=== PATIENT | female | born 1995 | race Hispanic/Latino ===

== ENCOUNTER 2022-04-20 18:56 | Emergency (ER) | payer SELFPAY ==
[2022-04-20 20:02] LABS: Urine Blood Trace-intact (Negative); Urine Glucose Negative (Negative); Urine Protein Negative (Negative)
[2022-04-20 20:10] LABS: Specific Gravity 1.007 (1.005-1.030); Urine Bacteria <20 /HPF (<20); Urine Bilirubin NEGATIVE (Negative); Urine Blood Negative (Negative); Urine Clarity Clear (Clear); Urine Color Colorless (Yellow); Urine Glucose NEGATIVE (Negative); Urine Mucus Slight /HPF (None Seen); Urine Protein NEGATIVE (Negative); Urine RBC <5 /HPF (None Seen); Urine Urobilinogen Normal (Normal); Urine pH 5.5 (5.0-7.0)
--- NOTE | 2022-04-20 21:29 | ER ---
Nurse's Notes [facility] Name: Di Lopez Age: 26 yrs Sex: Female : 1995 Arrival Date: 04/20/2022 Time: 18:59 Bed 7 Private MD: Diagnosis: Vaginal candidiasis, pelvic pain, lower back pain, urinary tract infection, acute cervicitis Presentation: 04/20 19:39 Chief complaint: Patient states: "I'm having lower back pain and pelvic pain". as6 Coronavirus screen: At this time, the client does not indicate any symptoms associated with coronavirus-19. Ebola Screen: No symptoms or risks identified at this time. Initial Sepsis Screen: Does the patient meet any 2 criteria? No. Patient's initial sepsis screen is negative. Does the patient have a suspected source of infection? No. Patient's initial sepsis screen is negative. Risk Assessment: Do you want to hurt yourself or someone else? Patient reports no desire to harm self or others. Onset of symptoms was April 19, 2022. 19:39 Method Of Arrival: Ambulatory as6 19:39 Acuity: MATTHEW 4 as6 Triage Assessment: 19:43 General: Appears uncomfortable, Behavior is calm, cooperative. Pain: Complains of pain as6 in back and pelvis Quality of pain is described as crampy. : Reports discharge. 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 - Social history:: Smoking status: Patient denies any tobacco usage or history of. - Family history:: not pertinent. Screenin:52 [facility] ED Fall Risk Assessment (Adult) History of falling in the last 3 months, kd3 including since admission No falls in past 3 months (0 pts) Confusion or Disorientation No (0 pts) Intoxicated or Sedated No (0 pts) Impaired Gait No (0 pts) Mobility Assist Device Used No (0 pt) Altered Elimination No (0 pt) Score/Fall Risk Level 0 - 2 = Low Risk. Abuse screen: Denies threats or abuse. Denies injuries from another. Nutritional screening: No deficits noted. Tuberculosis screening: No symptoms or risk factors identified. Assessment: 21:52 Neuro: Level of Consciousness is awake, alert, obeys commands, Oriented to person, kd3 place, time, situation. Vital Signs: 19:39 BP 124 / 76; Pulse 95; Resp 18 S; Temp 98.2(O); Pulse Ox 98% on R/A; Weight 90.72 kg as6 (R); Height 5 ft. 0 in. (152.40 cm) (R); Pain 7/10; 21:52 BP 122 / 72; Pulse 84; Resp 18; Pulse Ox 100% on R/A; kd3 19:39 Body Mass Index 39.06 (90.72 kg, 152.40 cm) as6 ED Course: 18:59 Patient arrived in ED. ja2 19:09 Jeremie Sosa MD is Attending Physician. sp4 19:43 Triage completed. as6 19:44 Arm band placed on. as6 21:02 Archana Sanabria, JERALD is Primary Nurse. kd3 21:52 Patient has correct armband on for positive identification. kd3 21:52 No provider procedures requiring assistance completed. Patient did not have IV access kd3 during this emergency room visit. Administered Medications: 21:48 Drug: Ondansetron 4 mg Route: PO; kd3 21:53 Follow up: Response: No adverse reaction kd3 21:48 Drug: Nitrofurantoin 100 mg Route: PO; kd3 21:53 Follow up: Response: No adverse reaction kd3 21:48 Drug: HYDROcodone-acetaminophen 5 mg-325 mg 2 tabs Route: PO; kd3 21:53 Follow up: Response: No adverse reaction; Pain is decreased kd3 21:49 Drug: Rocephin (cefTRIAXone) 1 grams Route: IM; Site: right gluteus; kd3 21:53 Follow up: Response: No adverse reaction kd3 21:49 Drug: DiFLUcan (fluconazole) 200 mg Route: PO; kd3 21:53 Follow up: Response: No adverse reaction kd3 21:49 Drug: Ibuprofen 800 mg Route: PO; kd3 21:53 Follow up: Response: No adverse reaction kd3 Medication: 21:52 VIS not applicable for this client. kd3 Outcome: 21:28 Discharge ordered by . sp4 21:52 Discharged to home ambulatory. kd3 21:52 Condition: stable 21:52 Discharge instructions given to patient, Instructed on discharge instructions, follow up and referral plans. medication usage, Demonstrated understanding of instructions, follow-up care, medications. 21:53 Patient left the ED. kd3 Signatures: Xiomy Pickens Ashby, RN RN as6 Archana Sanabria RN RN kd3 Jeremie Sosa MD MD sp4
--- NOTE | 2022-04-20 21:29 | EDPHYS ---
Physician Documentation [facility] Name: Di Lopez Age: 26 yrs Sex: Female : 1995 Arrival Date: 04/20/2022 Time: 18:59 Bed 7 Private MD: ED Physician Jeremie Sosa HPI: 04/20 19:09 This 26 yrs old Female presents to ER via Unassigned with complaints of Back sp4 Pain, Pelvic Pain. 20:08 26-year-old female with no significant past medical history presents with acute onset sp4 of pelvic and lower back pain starting yesterday evening associated with white vaginal discharge and some dysuria, patient states she does not suspect she is and she denied vaginal bleeding, pain is constant and crampy. 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 - Social history:: Smoking status: Patient denies any tobacco usage or history of. - Family history:: not pertinent. ROS: 20:08 Constitutional: Negative for fever, chills, and weight loss, Eyes: Negative for injury, sp4 pain, redness, and discharge, ENT: Negative for injury, pain, and discharge, Neck: Negative for injury, pain, and swelling, Cardiovascular: Negative for chest pain, palpitations, and edema, Respiratory: Negative for shortness of breath, cough, wheezing, and pleuritic chest pain, Abdomen/GI: Negative for abdominal pain, nausea, vomiting, diarrhea, and constipation, Back: Negative for injury positive for lower back pain : Negative for injury, negative for vaginal bleeding, positive for pelvic pain positive for vaginal discharge, positive for crampy lower back pain positive for dysuria MS/Extremity: Negative for injury and deformity, Skin: Negative for injury, rash, and discoloration, Neuro: Negative for headache, weakness, numbness, tingling, and seizure, Psych: Negative for depression, anxiety, suicide ideation, homicidal ideation, and hallucinations, Allergy/Immunology: Negative for hives, rash, and allergies, Endocrine: Negative for neck swelling, polydipsia, polyuria, polyphagia, and marked weight changes, Hematologic/Lymphatic: Negative for swollen nodes, abnormal bleeding, and unusual bruising. Exam: 20:08 Constitutional: This is a well developed, well nourished patient who is awake, alert, sp4 and in no acute distress. Head/Face: Normocephalic, atraumatic. Eyes: Pupils equal round and reactive to light, extra-ocular motions intact. Lids and lashes normal. Conjunctiva and sclera are non-icteric and not injected. Cornea within normal limits. Periorbital areas with no swelling, redness, or edema. ENT: Nares patent. No nasal discharge, no septal abnormalities noted. Tympanic membranes are normal and external auditory canals are clear. Oropharynx with no redness, swelling, or masses, exudates, or evidence of obstruction, uvula midline. Mucous membranes moist. Neck: Trachea midline, no thyromegaly or masses palpated, and no cervical lymphadenopathy. Supple, full range of motion without nuchal rigidity, or vertebral point tenderness. No Meningismus. Chest/axilla: Normal chest wall appearance and motion. Nontender with no deformity. No lesions are appreciated. Cardiovascular: Regular rate and rhythm with a normal S1 and S2. No gallops, murmurs, or rubs. Normal PMI, no JVD. No pulse deficits. Respiratory: Lungs have equal breath sounds bilaterally, clear to auscultation and percussion. No rales, rhonchi or wheezes noted. No increased work of breathing, no retractions or nasal flaring. Abdomen/GI: Soft, non-tender, with normal bowel sounds. No distension or tympany. No guarding or rebound. No evidence of tenderness throughout. Back: No spinal tenderness. No costovertebral tenderness. Full range of motion. Skin: Warm, dry with normal turgor. Normal color with no rashes, no lesions, and no evidence of cellulitis. MS/ Extremity: Pulses equal, no cyanosis. Neurovascular intact. Full, normal range of motion. Neuro: Awake and alert, GCS 15, oriented to person, place, time, and situation. Cranial nerves II-XII grossly intact. Motor strength 5/5 in all extremities. Sensory grossly intact. Cerebellar exam normal. Normal gait. Psych: Awake, alert, with orientation to person, place and time. Behavior, mood, and affect are within normal limits. 21:26 : Pelvic Exam: External exam: erythema is noted, White discharge indicative of sp4 vaginal candidiasis, no lesions no ulcers, no appreciated Bartholin's cyst, no evidence of foreign body, no lesions, no ulcerations, no warts seen, Speculum exam: no bleeding is noted, cervicitis present, os that is closed, White discharge indicative of vaginal candidiasis, cervix appears inflamed , otherwise normal exam,. Vital Signs: 19:39 BP 124 / 76; Pulse 95; Resp 18 S; Temp 98.2(O); Pulse Ox 98% on R/A; Weight 90.72 kg as6 (R); Height 5 ft. 0 in. (152.40 cm) (R); Pain 7/10; 21:52 BP 122 / 72; Pulse 84; Resp 18; Pulse Ox 100% on R/A; kd3 19:39 Body Mass Index 39.06 (90.72 kg, 152.40 cm) as6 MDM: 19:22 Patient medically screened. sp4 20:08 Differential diagnosis: Pelvic inflammatory disease, vaginitis, cervicitis, cystitis sp4 and lower UTI. ED course: Patient is awaiting for pelvic room and pelvic exam. 21:26 Data reviewed: vital signs, nurses notes. ED course: Patient has signs of moderate sp4 vaginal candidiasis and will require p.o. Diflucan, also there is UTI and patient will be provided medications for UTI. 04/20 19:11 Order name: Urine Test (obtain specimen); Complete Time: 20:01 sp4 04/20 19:11 Order name: Urinalysis W/Microscopic sp4 04/20 20:02 Order name: Urine --Ancillary (enter results) 4 04/20 20:02 Order name: Urine Dipstick-Ancillary; Complete Time: 20:08 EDMS 04/20 20:08 Order name: Pelvic Exam Setup; Complete Time: 21:25 sp4 04/20 20:10 Order name: Urinalysis W/Microscopic; Complete Time: 20:51 EDMS 04/20 21:12 Order name: Urine --Ancillary; Complete Time: 21:23 EDMS Administered Medications: 21:48 Drug: Ondansetron 4 mg Route: PO; kd3 21:53 Follow up: Response: No adverse reaction kd3 21:48 Drug: Nitrofurantoin 100 mg Route: PO; kd3 21:53 Follow up: Response: No adverse reaction kd3 21:48 Drug: HYDROcodone-acetaminophen 5 mg-325 mg 2 tabs Route: PO; kd3 21:53 Follow up: Response: No adverse reaction; Pain is decreased kd3 21:49 Drug: Rocephin (cefTRIAXone) 1 grams Route: IM; Site: right gluteus; kd3 21:53 Follow up: Response: No adverse reaction kd3 21:49 Drug: DiFLUcan (fluconazole) 200 mg Route: PO; kd3 21:53 Follow up: Response: No adverse reaction kd3 21:49 Drug: Ibuprofen 800 mg Route: PO; kd3 21:53 Follow up: Response: No adverse reaction kd3 Disposition Summary: 04/20/22 21:28 Discharge Ordered Location: Home sp4 Problem: new sp4 Symptoms: are unchanged sp4 Condition: Stable sp4 Diagnosis - Vaginal candidiasis, pelvic pain, lower back pain, urinary tract infection, acute sp4 cervicitis Followup: sp4 - With: Private Physician - When: 7 - 10 days - Reason: Re-evaluation by your physician Discharge Instructions: - Discharge Summary Sheet sp4 - Urinary Tract Infection, Adult sp4 - Vaginal Yeast Infection, Adult sp4 - Vaginitis, [id number] sp4 Forms: - Thank You Letter sp4 - Antibiotic Education sp4 Prescriptions: - Flagyl 500 mg Oral Tablet - take 1 tablet by ORAL route every 12 hours for 7 days; 14 tablet; Refills: 0, sp4 Product Selection Permitted - Ibuprofen 800 mg Oral Tablet - take 1 tablet by ORAL route every 8 hours As needed take with food; 30 tablet; sp4 Refills: 0, Product Selection Permitted - Zofran 4 mg Oral Tablet - take 1 tablet by ORAL route every 6 hours As needed PRN nausea; 6 tablet; sp4 Refills: 0, Product Selection Permitted - Macrobid 100 mg Oral Capsule - take 1 capsule by ORAL route every 12 hours for 10 days; 20 capsule; Refills: sp4 0, Product Selection Permitted - Fluconazole 200 mg Oral Tablet - take 1 tablet by ORAL route once daily for 10 days Once daily for 7 days; 10 sp4 tablet; Refills: 0, Product Selection Permitted Signatures: Dispatcher [employer] Skyler Ames, RN RN as6 Archana Sanabria RN RN kd3 Jeremie Sosa MD MD sp4
[2022-04-20] MEDS ORDERED: FLUCONAZOLE 100 MG TAB ONE (21:36)
[2022-04-20] MEDS ORDERED: NITROFURAN MACRO 100 MG CAP PO ONE (21:36)
[2022-04-20] MEDS ORDERED: CEFTRIAXONE 1000 MG/VIAL ONE (21:37)
[2022-04-20] MEDS ORDERED: IBUPROFEN 400 MG TAB ONE (21:37)
[2022-04-20] MEDS ORDERED: ONDANSETRON 4 MG (ODT) TAB ONE (21:37)
[2022-04-20] MEDS ORDERED: HYDROCODONE/APAP 5/325 MG TAB ONE (21:37)
[2022-04-20] MEDS ORDERED: LIDOCAINE 1% MPF 2 ML AMPULE ONE (21:37)
[2022-04-20 23:14] VITALS: BP 111/54; TEMP 98; O2SAT 99
== END 2022-04-20 21:53 | disposition home or self-care (01) ==
LOC: ER 18:56
DX: N39.0 Urinary tract infection, site not specified (principal); N72 Inflammatory disease of cervix uteri; B37.31 Acute candidiasis of vulva and vagina; R10.2 Pelvic and perineal pain
CPT/HCPCS: 81001; 81003; 81025; 96372; 99283; Q0162

== ENCOUNTER 2022-04-22 23:03 | Emergency (ER) | payer SELFPAY ==
[2022-04-23 00:20] LABS: Absolute Lymphocytes (CBC) 2.1 K/uL (0.7-4.9); Hematocrit 36.3 % (36.0-45.0); Lymphocytes % 20.3 % (15.3-44.8); MCV 85.6 fL (80-100); MPV 9.3 fL (7.6-11.3); RBC Red Blood Cell Count 4.24 M/uL (3.86-4.86)
[2022-04-23 00:32] LABS: Potassium 3.4 mmol/L (3.5-5.1); Troponin High Sensitivity 4.5 pg/mL (<58.9)
[2022-04-23 01:40] VITALS: BP 132/82; TEMP 98.2; O2SAT 98
--- NOTE | 2022-04-23 11:05 | RAD REPORT ---
EXAM DESCRIPTION: CT Head/Brain Without Contrast 04/23/2022 at 12: 19 AM CLINICAL HISTORY: Left arm/face numbness COMPARISON: None. TECHNIQUE: Head/brain axial images acquired without contrast. Coronal and sagittal reformats created . Exam performed according to departmental dose-optimization program which includes automated exposur e control, adjustment of mA and/or kV according to patient size, and/or use of iterative reconstructi on technique. FINDINGS: No midline shift, mass effect, intracranial hemorrhage, or hydrocephalus. Brain parenchyma unremarkable. Paranasal sinuses clear. Right frontal sinus not developed (normal variant). Mastoid air cells clear. No skull fracture or significant skull lesion. IMPRESSION: Unremarkable CT head/brain without contrast. Electronically signed by: Andre De Anda MD 04/23/2022 12:36 AM GREETER Due to temporary technical issues with the PACS/Fluency reporting system, reports are being signed by the in house radiologists without review as a courtesy to insure prompt reporting. The interpreting radiologist is fully responsible for the content of the report.
--- NOTE | 2022-04-23 13:01 | EKG ---
Test Date: 2022-04-22 Test Time: 23:54:57 Production Hand: LL MEASUREMENT RESULTS: Intervals: Rate: 93 MI: 138 QRSD: 78 QT: 348 QTc: 432 Reddick: P: 50 MI: 138 QRS: 56 T: 26 INTERPRETIVE STATEMENTS: Normal sinus rhythm Normal ECG No previous ECG available for comparison Electronically Signed On 04-23-22 13:01:11 DISTILLERY WORKER by Tre Chew
--- NOTE | 2022-05-09 14:10 | EDPHYS ---
Physician Documentation [facility] Name: Di Lopez Age: 26 yrs Sex: Female : 1995 Arrival Date: 04/22/2022 Time: 23:06 Bed 14 Private MD: ED Physician Goyo Valdez HPI: 04/23 00:19 This 26 yrs old Female presents to ER via Ambulatory with complaints of sp3 Numbness Of Arm, Numbness Of Face. 00:19 26-year-old female with no past medical history recent UTI on recent antibiotics now sp3 presents to the ED with chief complaint left arm numbness and left facial numbness off and on today. Symptoms are mild and almost gone at this time. She denies any visual changes, weakness, loss of balance or loss of hearing, loss of taste, neck pain, fever, URI symptoms, chest pain, shortness of breath, nausea, vomiting, diarrhea, abdominal pain, travel history or known sick contacts, or any other symptoms or aspects of ROS at this time.. 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 - Social history:: Smoking status: Patient denies any tobacco usage or history of. ROS: 04/23 00:20 Constitutional: Negative for fever, chills, and weight loss, Eyes: Negative for injury, sp3 pain, redness, and discharge, ENT: Negative for injury, pain, and discharge, Neck: Negative for injury, pain, and swelling, Cardiovascular: Negative for chest pain, palpitations, and edema, Respiratory: Negative for shortness of breath, cough, wheezing, and pleuritic chest pain, Abdomen/GI: Negative for abdominal pain, nausea, vomiting, diarrhea, and constipation, Back: Negative for injury and pain, MS/Extremity: Negative for injury and deformity, Skin: Negative for injury, rash, and discoloration, Psych: Negative for depression, anxiety, suicide ideation, homicidal ideation, and hallucinations, Allergy/Immunology: Negative for hives, rash, and allergies, Endocrine: Negative for neck swelling, polydipsia, polyuria, polyphagia, and marked weight changes, Hematologic/Lymphatic: Negative for swollen nodes, abnormal bleeding, and unusual bruising. All other systems are negative. Exam: 00:21 Constitutional: This is a well developed, well nourished patient who is awake, alert, sp3 and in no acute distress. Head/Face: Normocephalic, atraumatic. Eyes: Pupils equal round and reactive to light, extra-ocular motions intact. Lids and lashes normal. Conjunctiva and sclera are non-icteric and not injected. Cornea within normal limits. Periorbital areas with no swelling, redness, or edema. ENT: Nares patent. No nasal discharge, no septal abnormalities noted. External auditory canals are clear. Oropharynx with no redness, swelling, or masses, exudates, or evidence of obstruction, uvula midline. Mucous membranes moist. Neck: Trachea midline, no thyromegaly or masses palpated, and no cervical lymphadenopathy. Supple, full range of motion without nuchal rigidity, or vertebral point tenderness. No Meningismus. Chest/axilla: Normal chest wall appearance and motion. Nontender with no deformity. No lesions are appreciated. Cardiovascular: Regular rate and rhythm with a normal S1 and S2. No gallops, murmurs, or rubs. Normal PMI, no JVD. No pulse deficits. Respiratory: Lungs have equal breath sounds bilaterally, clear to auscultation and percussion. No rales, rhonchi or wheezes noted. No increased work of breathing, no retractions or nasal flaring. Abdomen/GI: Soft, non-tender, with normal bowel sounds. No distension or tympany. No guarding or rebound. No evidence of tenderness throughout. Back: No spinal tenderness. No costovertebral tenderness. Full range of motion. Skin: Warm, dry with normal turgor. Normal color with no rashes, no lesions, and no evidence of cellulitis. MS/ Extremity: Pulses equal, no cyanosis. Neurovascular intact. Full, normal range of motion. Neuro: Awake and alert, GCS 15, oriented to person, place, time, and situation. Cranial nerves II-XII grossly intact. Motor strength 5/5 in all extremities. Sensory grossly intact. Cerebellar exam normal. Normal gait. Psych: Awake, alert, with orientation to person, place and time. Behavior, mood, and affect are within normal limits. 00:21 Neuro: Normal neurological examination including two-point discrimination. There are no objective defects from a sensory standpoint on the face or upper extremity.. 00:23 ECG was reviewed by the Attending Physician. EKG demonstrates normal sinus rhythm at 93 sp3 bpm with normal intervals, normal QRS, normal axis, normal ST/T-segment's except isolated T wave inversion in lead III and absolutely no signs of ischemia. Vital Signs: 04/22 23:10 BP 132 / 82; Pulse 108; Resp 18; Temp 98.2(O); Pulse Ox 98% on R/A; Weight 90.72 kg ll3 (R); Height 5 ft. 0 in. ; Pain 0/10; 23:10 Body Mass Index 39.06 (90.72 kg, 152.4 cm) ll3 23:10 Pain Scale: Adult ll3 MDM: 23:26 Patient medically screened. sp3 03 00:21 Data reviewed: vital signs, nurses notes, lab test result(s), EKG, radiologic studies. sp3 ED course: 26-year-old with vague symptoms now resolving of left facial numbness and left upper arm numbness without much specificity. We will obtain CT scan of the head, EKG and general laboratory values. I am not highly suspicious that these will be positive and we will discharge patient home safely after they are obtained. Differential diagnosis includes facial or head mass, nerve issue, to a much lesser degree stroke or CVA. Patient is okay with the plan and has no further questions at this time.. 00:46 ED course: I reviewed CT scan of the head, imaging, EKG and labs. Everything appears to sp3 be normal and we will discharge patient home at this time.. 04/22 23:26 Order name: Basic Metabolic Panel; Complete Time: 00:46 sp3 04/22 23:26 Order name: CBC with Diff; Complete Time: 00:46 sp3 04/22 23:26 Order name: Troponin HS; Complete Time: 00:46 sp3 04/22 23:26 Order name: CT Head Brain wo Cont sp3 04/22 23:26 Order name: EKG; Complete Time: 23:27 sp3 04/22 23:26 Order name: EKG - Nurse/Tech; Complete Time: 23:56 sp3 04/22 23:26 Order name: IV Saline Lock; Complete Time: 00:03 sp3 04/22 23:26 Order name: Labs collected and sent; Complete Time: 00:03 sp3 Administered Medications: No medications were administered Disposition Summary: 04/23/22 00:47 Discharge Ordered Location: Home sp3 Condition: Stable sp3 Diagnosis - Paresthesia, facial numbness (resolved) sp3 Followup: sp3 - With: Private Physician - When: Upon discharge from the Emergency Department - Reason: If symptoms return, Continuance of care Discharge Instructions: - Discharge Summary Sheet sp3 - Paresthesia, [id number] sp3 Forms: - Medication Reconciliation Form sp3 - Thank You Letter sp3 - Antibiotic Education sp3 - Prescription Opioid Use sp3 Signatures: Dispatcher [employer] EDMS Goyo Valdez MD MD sp3 Kiara Jay RN RN ll3 Corrections: (The following items were deleted from the chart) 04/22 23:15 23:13 Home Meds: None; ll3 ll3
--- NOTE | 2022-05-09 14:10 | ER ---
Nurse's Notes [facility] Name: Di Lopez Age: 26 yrs Sex: Female : 1995 Arrival Date: 04/22/2022 Time: 23:06 Bed 14 Private MD: Diagnosis: Paresthesia, facial numbness (resolved) Presentation: 04/22 23:10 Chief complaint: Patient states: states this morning it started with a sharp pain in ll3 left arm around 10 AM, then around noon the left arm and left side of face started to feel numb, denies pain at this time. Coronavirus screen: Vaccine status: Patient reports receiving the 2nd dose of the covid vaccine. At this time, the client does not indicate any symptoms associated with coronavirus-19. Ebola Screen: No symptoms or risks identified at this time. Initial Sepsis Screen: Does the patient meet any 2 criteria? No. Patient's initial sepsis screen is negative. Does the patient have a suspected source of infection? No. Patient's initial sepsis screen is negative. Risk Assessment: Do you want to hurt yourself or someone else? Patient reports no desire to harm self or others. Onset of symptoms was April 22, 2022 at 10:00. 23:10 Method Of Arrival: Ambulatory ll3 23:10 Acuity: MATTHEW 2 ll3 Triage Assessment: 23:15 General: Appears uncomfortable, Behavior is calm, cooperative. Pain: Denies pain. ll3 Neuro: Numbness in left cheek, left jaw and left arm. Respiratory: Respiratory effort is even, unlabored, Respiratory pattern is regular, symmetrical. Derm: Skin is pink, warm \T\ dry. 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 - Social history:: Smoking status: Patient denies any tobacco usage or history of. Screenin/08 01:04 [facility] ED Fall Risk Assessment (Adult) History of falling in the last 3 months, ll3 including since admission No falls in past 3 months (0 pts) Confusion or Disorientation No (0 pts) Intoxicated or Sedated No (0 pts) Impaired Gait No (0 pts) Mobility Assist Device Used No (0 pt) Altered Elimination No (0 pt) Score/Fall Risk Level 0 - 2 = Low Risk Oriented to surroundings, Maintained a safe environment. Abuse screen: Denies threats or abuse. Denies injuries from another. Nutritional screening: No deficits noted. Tuberculosis screening: No symptoms or risk factors identified. Assessment: 04/22 23:15 General: See triage assessment. ll3 Vital Signs: 23:10 BP 132 / 82; Pulse 108; Resp 18; Temp 98.2(O); Pulse Ox 98% on R/A; Weight 90.72 kg ll3 (R); Height 5 ft. 0 in. ; Pain 0/10; 23:10 Body Mass Index 39.06 (90.72 kg, 152.4 cm) ll3 23:10 Pain Scale: Adult ll3 ED Course: 23:06 Patient arrived in ED. ja2 23:09 Goyo Valdez MD is Attending Physician. sp3 23:13 Triage completed. ll3 23:13 Arm band placed on Patient placed in waiting room, Patient notified of wait time. ll3 04/23 00:03 Basic Metabolic Panel Sent. jb5 00:03 CBC with Diff Sent. jb5 00:03 Troponin HS Sent. jb5 00:03 Inserted saline lock: 20 gauge in right antecubital area, using aseptic technique. jb5 Blood collected. 00:21 CT Head Brain wo Cont In Process Unspecified. EDMS 01:05 Patient has correct armband on for positive identification. Placed in gown. Bed in low ll3 position. Call light in reach. Side rails up X 1. Adult w/ patient. 01:05 No provider procedures requiring assistance completed. IV discontinued, intact, ll3 bleeding controlled, No redness/swelling at site. Pressure dressing applied. Administered Medications: No medications were administered Medication: 01:05 VIS not applicable for this client. ll3 Outcome: 00:47 Discharge ordered by . sp3 01:05 Discharged to home ambulatory, with family. ll3 01:05 Condition: stable 01:05 Discharge instructions given to patient, Instructed on discharge instructions, follow up and referral plans. Demonstrated understanding of instructions, follow-up care. 01:06 Patient left the ED. ll3 Signatures: Dispatcher [employer] Elaine Hearn5 Goyo Valdez MD MD sp3 Xiomy Pickens Lynsea, RN RN ll3 Corrections: (The following items were deleted from the chart) 04/22 23:15 23:13 Home Meds: None; 3 3
== END 2022-04-23 01:06 | disposition home or self-care (01) ==
LOC: ER 23:03
DX: R20.2 Paresthesia of skin (principal)
CPT/HCPCS: 36415; 70450; 80048; 84484; 85025; 93005; 99283

== ENCOUNTER 2022-12-12 20:35 | Emergency (ER) | payer SELFPAY ==
--- OUTSIDE RECORDS SUMMARY | 2022-12-12 20:38 | XMS REPORT | Continuity of Care Document ---
:1995 Author Organization [facility] t Address [address] [place] [address]. [address] [place] [address] Care Team Providers Name Role Phone PCP, PATIENT DOES NOT HAVE A Primary Care Physician Unavaila CLOVIS Medina Attending Clinician Unavailable Clovis Duffy MD Attending Clinician CLOVIS DUFFY Admitting Clinician Unavailable Payers Payer Name Policy Type Policy Number Effective Date Expiration Date S [facility] MEDICAID ALIEN PENDING 2022 PENDING 00:00:00 Problems This patient has no known problems. Allergies, Adverse Reactions, Alerts Allergy Allergy Status Severity Reaction(s) Onset Inactive Treating Comm ents Source Name Type Date Date Clinician NO KNOWN Drug Active Univers ALLERGIE Class ity [facility] Social History Social Habit Start Date Stop Date Quantity Comments Source Gender identity [facility] Sexual orientation [facility] Sex Assigned At [birth year] Uni [facility] 00:00:00 00:00:00 [facility] Smoking Status Start Date Stop Date Source Tobacco smoking consumption [facility] Branch Medications Ordered Filled Start Stop Current Ordering Indication Dosage Frequency Signature Comments Components Source Medication Medication Date Date Medication? Clinician (SIG) Name Name iopamidol 2022- No [id number] 100mL 100 mL, Univers (ISOVUE 08-31 Intravenou ity o f 370-500 mL) 08:30: 08:30 s, ONCE, 1 [place] injection 00 :00 dose, On Medica l 100 mL [facility] 08/31/22 at 0330, Routine cefTRIAXone 2022- No 1000mg 1,000 mg, Univers (ROCEPHIN) 08-31 IV ity of 1,000 mg in 08:00: 08:40 Piggyback, [place] NaCl 0.9% 00 :00 ONCE, 1 Medical (NS) 100 mL dose, On Bran ch MINI-BAG [place] 08/31/22 at 0300, Administer over 30 Minutes, 100 mL
Reas on for Anti-Infec tive: Documented Infection< br>Documen osiris Infection Site: Abdominal& lt;br>Dura tion of Therapy: 7 days levoFLOXaci 2022- No 500mg 500 mg, U nivers n 08-31 Oral, ity of (LEVAQUIN) 08:00: 08:05 ONCE, 1 [place] as tablet 500 00 :00 dose, On Medic al mg [facility] 08/31/22 at 0300, DEB
Re ason for Anti-Infec tive: Documented Infection< br>Documen osiris Infection Site: Abdominal< br>Duratio n of Therapy: 7 days ketorolac 2022- No 30mg 30 mg, Unive rs (TORADOL) 08-31 Slow IV ity of injection 06:30: 05:48 Push, [place] 30 mg 00 :00 ONCE, 1 Medical dose, On Branch [place] 08/31/22 at 0130, DEB NaCl 0.9% 2022- No 500mL at 999 Univ ers (NS) bolus 08-31 mL/hr, 500 it y of infusion 06:30: 06:30 mL, IV [place] 500 mL 00 :00 Piggyback, Medical ONCE, 1 Branch dose, On [place] 08/31/22 at 0130, STAT ciprofloxac Yes [id number] 500mg Take 1 Univers in HCl 500 7-16 tablet by ity of mg tablet 00:00: mouth [place] 00 the Medical morning Branch and 1 tablet in the evening. ondansetron Yes [id number] 4mg Take 1 Univers 4 mg 7-16 tablet by ity of disintegrat 00:00: mouth [place] ing tablet 00 every 12 Medic al (twelve) Branch hours as needed for Nausea and Vomiting (N/V). ibuprofen Yes [id number] 600mg Take 1 Univers 600 mg 7-16 tablet by ity of tablet 00:00: mouth [place] 00 every 6 Medical (six) Branch hours as needed for Pain (scale 4-6) or Temp > 38.5 C. metroNIDAZO 2022- No [id number] 500mg Take 1 Univers LE 500 mg 7-16 -25 tablet by ity of tablet 00:00: 04:59 mouth in [place] 00 :00 the Medical morning Branch and 1 tablet at noon and 1 tablet in the evening. Do all this for 8 days. Vital Signs Vital Name Observation Time Observation Value Comments Source Heart rate 2022-08-31 08:41:00 112 /min [facility] Body temperature 2022-08-31 08:41:00 37.67 Bessie [facility] Oxygen saturation in 2022-08-31 08:41:00 99 /min [facility] Arterial blood by [facility] Pulse oximetry [place] Systolic blood 2022-08-31 08:00:00 112 mm[Hg] [facility] Diastolic blood 2022-08-31 08:00:00 75 mm[Hg] [facility] Respiratory rate 2022-08-31 08:00:00 15 /min [facility] Body height 2022-08-31 05:19:00 152.4 cm [facility] Body weight 2022-08-31 05:19:00 86.183 kg [facility] BMI 2022-08-31 05:19:00 37.11 kg/m2 [facility] Procedures Procedure Date / Time Performed Performing Clinician Carlos e CT ABDOMEN PELVIS W 2022-08-31 07:36:56 Clovis Duffy [facility] POCT TEST 2022-08-31 05:51:00 Clovis Duffy [facility] LIPASE 2022-08-31 05:43:00 Clovis Duffy [place] [facility] COMP. METABOLIC PANEL 2022-08-31 05:43:00 Clovis Duffy [facility] ([id number] CBC WITH DIFF 2022-08-31 05:43:00 Clovis Duffy [place] [facility] URINALYSIS 2022-08-31 05:43:00 Clovis Duffy [place] [facility] CONSENT/REFUSAL FOR 2022-08-31 05:11:13 [facility] Name Medical Branch TREATMENT NOTICE OF PRIVACY 2022-08-31 05:10:21 Doctor Unassigned, No Univ ersity [facility] Name Medical Branch Encounters Start End Encounter Admission Attending Care Care Encounter Source Date/Time Date/Time Type Type Clinicians Facility Department ID 2022-12-12 2022-12-12 Outpatient SFA SFA [id number] [place] 08:42:05 08:42:05 [id number] F Raul 2022-08-31 2022-08-31 Emergency X [facility] ERT [id number] Univers 00:11:00 03:45:00 CLOVIS brooke [facility] 2022-08-31 2022-08-31 Emergency [facility] [id number] Univers 00:11:00 03:45:00 Clovis CONLEY [id number] [facility] [id number] [facility] [id number] [place] [id number] Branch Results Test Description Test Time Test Comments Results Result Comments Source COMP. METABOLIC PANEL (97570) 2022-08-31 06:10:48 Test Item Value Reference Range Interpretation Comme nts NA (test code = 7856952859) 140 mmol/L 135-145 K (test code = 2844197709) 3.4 mmol/L 3.5-5.0 L CL (test code = 3723552355) 103 mmol/L 98-108 CO2 TOTAL (test code = 3406636624) 23 mmol/L 23-31 AGAP (test code = 9934837783) 14 2-16 BUN (test code = 7966503639) 9 mg/dL 7-23 GLUCOSE (test code = 5471710572) 108 mg/dL 70-110 CREATININE (test code = 0.46 mg/dL 0.50-1.04 L 4577409812) TOTAL BILI (test code = 0.4 mg/dL 0.1-1.6 4041373928) CALCIUM (test code = 7679072700) 9.3 mg/dL 8.6-10.6 T PROTEIN (test code = 9280490713) 7.7 g/dL 6.3-8.2 ALBUMIN (test code = 7041470849) 4.3 g/dL 3.5-5.0 ALK PHOS (test code = 9873510989) 79 U/L 34-122 ALTv (test code = 1742-6) 26 U/L 5-35 AST(SGOT) (test code = 5377416970) 24 U/L 13-40 eGFR (test code = 3349752220) 165.5 mL/min/1.73m2 KIMANI (test code = KIMANI) Association of Glomerular Filtration Rate (GFR) and Staging of Kidney Disease* + +-------- + ------+| GFR (mL/min/1.73 m2) ?| With Kidney Damage ?| ?Without Kidney Damage+ +-- + +| ?>90 ?| ?Stage one ?| ? Normal ?+ +------- + -------+| ?60-89 ?| ?Stage two ?| ? Decreased GFR ? + +-------- + ------+| ?30-59 ?| ?Stage three ?| ? Stage three ? + +-------- + ------+| ?15-29 ?| ?Stage four ? | ? Stage four ?+ +------- + -------+| ?<15 (or dialysis) ? ?| ?Stage five ? | ? Stage five ?+ +------- + -------+ *Each stage assumes the associated GFR level has been in effect for at least three months. ?Stages 1 to 5, with or without kidney disease, indicate chronic kidney disease. Notes: Determination of stages one and two (with eGFR >59mL/min/1.73 m2) requires estimation of kidney damage for at least three months as defined by structural or functional abnormalities of the kidney, manifested by either:Pathological abnormalities or Markers of kidney damage (including abnormalities in the composition of the blood or urine or abnormalities in imaging tests). Lab Interpretation (test code = Abnormal 49545-6) [facility]08 Test Item Value Reference Range Interpretation Comments LIPASE (test code = 3757960845) 103 U/L 0-220 Lab Interpretation (test code = Normal 95220-2) [facility] WITH [id number] 05:59:09 Test Item Value Reference Range Interpretation Comments WBC (test code = 9.89 See_Comment [Automated 6690-2) message] The sy stem which generated this result transmitted reference range : 4.30 - 11.10 10*3/?L. The reference range was not used to interpret this result as normal/abnormal . RBC (test code = 4.19 See_Comment [Automated 789-8) message] The sy stem which generated this result transmitted reference range : 3.93 - 5.25 10*6/?L. The reference range was not used to interpret this result as normal/abnormal . HGB (test code = 12.2 g/dL 11.6-15.0 718-7) HCT (test code = 35.5 % 35.7-45.2 L 4544-3) MCV (test code = 84.7 fL 80.6-95.5 787-2) MCH (test code = 29.1 pg 25.9-32.8 785-6) MCHC (test code = 34.4 g/dL 31.6-35.1 786-4) RDW-SD (test code = 36.8 fL 39.0-49.9 L 90348-2) RDW-CV (test code = 12.1 % 12.0-15.5 788-0) PLT (test code = 277 See_Comment [Automated 777-3) message] The sy stem which generated this result transmitted reference range : 166 - 358 10*3/ ?L. The reference r haroldo was not used to interpret this result as normal/abnormal . MPV (test code = 11.3 fL 9.5-12.9 28583-2) NRBC/100 WBC (test 0.0 See_Comment [Automat ed code = 3084761723) message] The system which generated this result transmitted reference range : 0.0 - 10.0 /100 WBCs. The refer ence range was not u sed to interpret th is result as normal/abnormal . NRBC x10^3 (test code See_Comment [Auto mated = 9638897140) message] The s ystem which generated this result transmitted reference range : 10*3/?L. The reference range was not used to interpret this result as normal/abnormal . GRAN MAT (NEUT) % 55.7 % (test code = 770-8) IMM GRAN % (test code 0.40 % = 6827210963) LYMPH % (test code = 36.0 % 736-9) MONO % (test code = 6.2 % 5905-5) EOS % (test code = 1.4 % 713-8) BASO % (test code = 0.3 % 706-2) GRAN MAT x10^3(ANC) 5.51 10*3/uL 1.88-7.09 (test code = 2695477441) IMM GRAN x10^3 (test 0.04 10*3/uL 0.00-0.06 code = 0577638365) LYMPH x10^3 (test code 3.56 10*3/uL 1.32-3.29 H = 731-0) MONO x10^3 (test code 0.61 10*3/uL 0.33-0.92 = 742-7) EOS x10^3 (test code = 0.14 10*3/uL 0.03-0.39 711-2) BASO x10^3 (test code 0.03 10*3/uL 0.01-0.07 = 704-7) Lab Interpretation Abnormal (test code = 08315-2) [facility] [id number] 05:51:00 Test Item Value Reference Range Interpretation Comments POCT PREG (test code = 1605) Negative On board controls acceptable with Yes C Line (test code = 3574) POCT PREG LOT # (test code = 3575) [id number] POCT PREG TEST DATE (test code = 3576) Lab Interpretation (test code = Normal 03402-1) [facility] Northwest[facility]ULT[facility], [id number] 11:23:15SPECIMEN NUMBER: [id number] CULTURE, URINE SPECIMEN NUMBER: [id number] SPECIMEN COMMENT: URINE SOURCE: URINE REPORT STATUS: FINAL FINAL REPORT: 12/13/2021 50-100,000 CFU/ML UROGENITAL VALERIA PRESENT NO COMMON PATHOGENS UNLESS OTHERWISE INDICATED, ALL TESTING PERFORMED [facility] [address] [place] [address] ASSISTANT COACH: KWAME DOWNING M.D. [place] NUMBER [id number] [facility] [place]. [id number]"
[2022-12-12 21:13] LABS: Specific Gravity 1.006 (1.005-1.030)
[2022-12-12 21:15] LABS: Absolute Lymphocytes (CBC) 3.4 K/uL (0.7-4.9); Hematocrit 36.3 % (36.0-45.0); Lymphocytes % 33.7 % (15.3-44.8); MCV 85.3 fL (80-100); MPV 9.1 fL (7.6-11.3); Platelets 285 thou/uL (152-406); RBC Red Blood Cell Count 4.26 M/uL (3.86-4.86); Specific Gravity 1.006 (1.005-1.030); Urine Bacteria <20 /HPF (<20); Urine Bilirubin NEGATIVE (Negative); Urine Blood Negative (Negative); Urine Clarity Turbid (Clear); Urine Color Colorless (Yellow); Urine Crystals Unidentified Few /HPF (None Seen); Urine Glucose NEGATIVE (Negative); Urine Protein NEGATIVE (Negative); Urine RBC <5 /HPF (None Seen); Urine Urobilinogen Normal (Normal); Urine pH 5.5 (5.0-7.0)
[2022-12-12 21:30] LABS: Albumin 3.6 g/dL (3.4-5.0); Bilirubin Total 0.3 mg/dL (0.2-1.0); Potassium 3.4 mEq/L (3.5-5.1); Protein, Total 8.3 g/dL (6.4-8.2)
[2022-12-12] MEDS ORDERED: MORPHINE 2 MG/ML SYR ONE (21:32)
[2022-12-12] MEDS ORDERED: NA CHLORIDE 0.9% 1,000 ML ONE (21:33)
[2022-12-12] MEDS ORDERED: ONDANSETRON 4 MG/2 ML VIAL ONE (21:33)
--- NOTE | 2022-12-12 22:22 | RAD REPORT ---
EXAM DESCRIPTION: CT - Abdomen Pelvis W Contrast - 12/12/2022 10:06 pm CLINICAL HISTORY: Abdominal pain/left lower quadrant pain COMPARISON: none. TECHNIQUE: Computed axial tomography of the abdomen pelvis was obtained. 100 cc Isovue-300 was admin istered intravenously. Oral contrast was not requested which limits evaluation of bowel and appendix All CT scans are performed using dose optimization technique as appropriate and may include automated exposure control or mA/KV adjustment according to patient size. FINDINGS: The liver, spleen, pancreas, adrenal and kidneys appear unremarkable. Several diverticula stem from the colon. No evidence diverticulitis. Normal appendix. No adnexal mass Small umbilical hernia IMPRESSION: No acute abnormality is displayed.
--- NOTE | 2022-12-12 22:31 | EDPHYS ---
Physician Documentation [facility] Name: Di Lopez Age: 27 yrs Sex: Female : 1995 Arrival Date: 12/12/2022 Time: 20:35 Bed 19 Private MD: ED Physician Clarence Adler HPI: 12/12 20:58 This 27 yrs old Female presents to ER via Ambulatory with complaints of rn Abdominal Pain. 20:58 The patient presents with abdominal pain in the left upper quadrant, in the left lower rn quadrant. Onset: The symptoms/episode began/occurred today. The symptoms do not radiate. Associated signs and symptoms: Pertinent positives: constipation, nausea, Pertinent negatives: fever, shortness of breath, vomiting. The symptoms are described as achy. Modifying factors: The symptoms are alleviated by nothing, the symptoms are aggravated by pressure. Severity of pain: At its worst the pain was moderate in the emergency department the pain has improved. The patient has experienced a previous episode. Patient reports left-sided abdominal pain that began earlier today, associated with nausea, decreased appetite and constipation. Has had diverticulitis before. No fever. No vomiting.. 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 - Social history:: Smoking status: Patient denies any tobacco usage or history of. - Family history:: not pertinent. - Hospitalizations: : No recent hospitalization is reported. ROS: 20:58 Constitutional: Negative for fever, chills, and weight loss, Eyes: Negative for injury, rn pain, redness, and discharge, Neck: Negative for injury, pain, and swelling, Cardiovascular: Negative for chest pain, palpitations, and edema, Respiratory: Negative for shortness of breath, cough, wheezing, and pleuritic chest pain, Abdomen/GI: Positive for abdominal pain and nausea MS/Extremity: Negative for injury and deformity, Skin: Negative for injury, rash, and discoloration, Neuro: Negative for headache, weakness, numbness, tingling, and seizure, Exam: 20:58 Constitutional: This is a well developed, well nourished patient who is awake, alert, rn and in no acute distress. Head/Face: Normocephalic, atraumatic. Cardiovascular: Tachycardic, regular. No pulse deficits Respiratory: No increased work of breathing, no retractions or nasal flaring. Abdomen/GI: Soft, mild left lower quadrant and left upper quadrant tenderness. Negative [place]. Skin: Warm, dry MS/ Extremity: Pulses equal, no cyanosis Neuro: Awake and alert, GCS 15 Vital Signs: 20:42 Pulse 104; Resp 18; Temp 98; Pulse Ox 100% ; rv 20:46 BP 139 / 66; rv 21:11 BP 123 / 70; Pulse 98; Resp 16 S; Pulse Ox 100% on R/A; Pain 6/10; km8 22:17 BP 132 / 72; Pulse 110; Resp 16 S; Pulse Ox 100% on R/A; km8 23:00 BP 116 / 72; Pulse 89; Resp 16 S; Pulse Ox 100% on R/A; km8 21:11 Pain Scale: Adult km8 MDM: 20:40 Patient medically screened. rn 21:00 Differential diagnosis: appendicitis, bowel obstruction, cholecystitis, Cholelithiasis, rn diverticulitis, Endometriosis, gastritis, gastroesophageal reflux disease, non-specific abd pain, pancreatitis, Peptic Ulcer Disease, Ureterolithiasis, urinary tract infection. 22:30 Data reviewed: vital signs, nurses notes, lab test result(s), radiologic studies, CT rn scan, and as a result, I will discharge patient. Counseling: I had a detailed discussion with the patient and/or guardian regarding the historical points, exam findings, and any diagnostic results supporting the discharge/admit diagnosis, lab results, radiology results, the need for outpatient follow up, to return to the emergency department if symptoms worsen or persist or if there are any questions or concerns that arise at home. Response to treatment: the patient's symptoms have markedly improved after treatment, and as a result, I will discharge patient. Special discussion: Based on the patient's Hx, exam, and Dx evaluation, there is no indication for emergent surgery or inpatient Tx. It is understood by the patient/guardian that if the Sx's persist or worsen they need to return immediately for re-evaluation. I discussed with the patient/guardian in detail that at this point there is no indication for admission to the hospital. It is understood, however, that if the symptoms persist or worsen the patient needs to return immediately for re-evaluation. Based on the history and exam findings, there is no indication for further emergent testing or inpatient evaluation. I discussed with the patient/guardian the need to see the primary care provider for further evaluation of the symptoms. 12/12 20:52 Order name: CBC with Diff; Complete Time: 21:30 rn 12/12 20:52 Order name: CMP; Complete Time: :30 rn 12/12 20:52 Order name: Lipase; Complete Time: 21:30 rn 12/12 20:52 Order name: Test, Urine; Complete Time: 21:30 rn 12/12 20:52 Order name: Urinalysis w/ reflexes; Complete Time: 21:30 rn 12/12 20:52 Order name: CT Abd/Pelvis - IV Contrast Only; Complete Time: 22:25 rn 12/12 20:52 Order name: IV Saline Lock; Complete Time: 21:10 rn 12/12 20:52 Order name: Labs collected and sent; Complete Time: 21:10 rn Administered Medications: 21:25 Drug: NS 0.9% IV 1000 ml IV at 1 bolus Per protocol; 1000 mL bolus Route: IV; Rate: 1 km8 bolus; Site: right antecubital; 23:24 Follow up: Response: No adverse reaction; IV Status: Completed infusion; IV Intake: km8 1000ml 21:25 Drug: Ondansetron IVP 4 mg IVP once; over 2 minutes Route: IVP; Site: right antecubital;km8 21:50 Follow up: Response: No adverse reaction; Nausea is decreased km8 21:25 Drug: morphine IVP or IV 2 mg IVP once over 4 mins Route: IVP; Infused Over: 4 mins; km8 Site: right antecubital; 21:50 Follow up: Response: No adverse reaction; Pain is decreased km8 23:22 Drug: Ciprofloxacin PO 500 mg PO once Route: PO; km8 23:23 Follow up: Response: No adverse reaction km8 23:22 Drug: metroNIDAZOLE PO 500 mg PO once Route: PO; km8 23:23 Follow up: Response: No adverse reaction km8 Disposition Summary: 12/12/22 22:31 Discharge Ordered Notes: Location: Home rn Problem: new rn Symptoms: have improved rn Condition: Stable rn Diagnosis - Abdominal pain, unspecified rn Followup: rn - With: Private Physician - When: As needed - Reason: Recheck today's complaints, Re-evaluation by your physician Discharge Instructions: - Discharge Summary Sheet rn - Abdominal Pain, Adult rn Forms: - Medication Reconciliation Form rn - Thank You Letter rn - Antibiotic critical care rn - Prescription Opioid Use rn - Patient Portal Instructions rn - Leadership Thank You Letter rn Prescriptions: - Flagyl 500 mg Oral Tablet - take 1 tablet ORAL route every 8 hours for 10 days; 30 tablet; Refills: 0, rn Product Selection Permitted - Cipro 500 mg Oral tablet - take 1 tablet ORAL route every 12 hours for 10 days; 20 tablet; Refills: 0, rn Product Selection Permitted Signatures: Dispatcher [employer] Clarence Villalta MD MD rn Vicente, Ronaldo RN RN Luh Knowles RN RN km8
--- NOTE | 2022-12-12 22:31 | ER ---
Nurse's Notes [facility] Name: Di Lopez Age: 27 yrs Sex: Female : 1995 Arrival Date: 12/12/2022 Time: 20:35 Bed 19 Private MD: Diagnosis: Abdominal pain, unspecified Presentation: 12/12 20:42 Chief complaint: Patient states: PAIN ON THE LUQ, ABD PAIN, DENIES N/V/D. Coronavirus rv screen: At this time, the client does not indicate any symptoms associated with coronavirus-19. Ebola Screen: No symptoms or risks identified at this time. Initial Sepsis Screen: Does the patient meet any 2 criteria? No. Patient's initial sepsis screen is negative. Does the patient have a suspected source of infection? No. Patient's initial sepsis screen is negative. Risk Assessment: Do you want to hurt yourself or someone else? Patient reports no desire to harm self or others. Onset of symptoms was December 12, 2022. 20:42 Method Of Arrival: Ambulatory rv 20:42 Acuity: MATTHEW 3 rv Triage Assessment: 20:44 General: Appears uncomfortable, Behavior is calm, cooperative. Pain: Complains of pain rv in abdomen. Neuro: Level of Consciousness is awake, alert, obeys commands, Oriented to person, place, time, situation. Cardiovascular: Capillary refill < 3 seconds Patient's skin is warm and dry. Respiratory: Airway is patent Respiratory effort is even, unlabored. GI: Abdomen is round non-distended. Derm: Skin is intact. P[employer]MAN [employer] RE[employer]ER: 21:11 LMP 11/26/2022, unknown km8 Historical: - Allergies: 20:44 No Known Allergies; rv - PMHx: 20:44 Diverticulitis; rv - PSHx: 20:44 D\T\C; rv - Immunization history:: Adult Immunizations up to date. - Social history:: Smoking status: Patient denies any tobacco usage or history of. - Family history:: not pertinent. - Hospitalizations: : No recent hospitalization is reported. Screenin:26 [facility] ED Fall Risk Assessment (Adult) History of falling in the last 3 months, km8 including since admission No falls in past 3 months (0 pts) Confusion or Disorientation No (0 pts) Intoxicated or Sedated No (0 pts) Impaired Gait No (0 pts) Mobility Assist Device Used No (0 pt) Altered Elimination No (0 pt) Score/Fall Risk Level 0 - 2 = Low Risk Oriented to surroundings, Maintained a safe environment, Educated pt \T\ family on fall prevention, incl call for assistance when getting out of bed, Assessed \T\ reinforced patient's understanding of fall precautions. Abuse screen: Denies threats or abuse. Denies injuries from another. Nutritional screening: No deficits noted. Tuberculosis screening: No symptoms or risk factors identified. Assessment: 20:45 Reassessment: SEE TRIAGE NOTES. rv 21:26 General: Appears in no apparent distress. comfortable, Behavior is calm, cooperative, km8 appropriate for age. Pain: Complains of pain in left upper quadrant Pain currently is 6 out of 10 on a pain scale. Quality of pain is described as sharp, Pain began 1 day ago. Is intermittent. Neuro: Potter Agitation-Sedation Scale (RASS): 0 - Alert and Calm Level of Consciousness is awake, alert, obeys commands, Oriented to person, place, time, situation. Cardiovascular: Denies chest pain, shortness of breath, Capillary refill < 3 seconds Patient's skin is warm and dry. Respiratory: No deficits noted. Airway is patent Respiratory effort is even, unlabored, Respiratory pattern is regular, symmetrical. GI: Abdomen is non-distended, Bowel sounds present X 4 quads. Abd is soft Reports upper abdominal pain, Pain is 6 out of 10 on a pain scale. : No deficits noted. No signs and/or symptoms were reported regarding the genitourinary system. EENT: No deficits noted. No signs and/or symptoms were reported regarding the EENT system. Derm: No deficits noted. No signs and/or symptoms reported regarding the dermatologic system. Skin is intact, is healthy with good turgor, Skin is dry, Skin is normal, Skin temperature is warm. Musculoskeletal: No deficits noted. No signs and/or symptoms reported regarding the musculoskeletal system. Circulation, motion, and sensation intact. Range of motion: intact in all extremities. 22:16 Reassessment: Patient appears in no apparent distress at this time. No changes from km8 previously documented assessment. Patient and/or family updated on plan of care and expected duration. Pain level reassessed. Patient is alert, oriented x 3, equal unlabored respirations, skin warm/dry/pink. 23:23 Reassessment: Patient appears in no apparent distress at this time. No changes from km8 previously documented assessment. Patient and/or family updated on plan of care and expected duration. Pain level reassessed. Patient is alert, oriented x 3, equal unlabored respirations, skin warm/dry/pink. Vital Signs: 20:42 Pulse 104; Resp 18; Temp 98; Pulse Ox 100% ; rv 20:46 BP 139 / 66; rv 21:11 BP 123 / 70; Pulse 98; Resp 16 S; Pulse Ox 100% on R/A; Pain 6/10; km8 22:17 BP 132 / 72; Pulse 110; Resp 16 S; Pulse Ox 100% on R/A; km8 23:00 BP 116 / 72; Pulse 89; Resp 16 S; Pulse Ox 100% on R/A; km8 21:11 Pain Scale: Adult [facility] ED Course: 20:39 Patient arrived in ED. gm2 20:40 Clarence Adler MD is Attending Physician. rn 20:44 Triage completed. rv 20:44 Arm band placed on right wrist. rv 21:00 Inserted saline lock: 20 gauge in right antecubital area, using aseptic technique. rv Blood collected. 21:12 Luh Knowles, JERALD is Primary Nurse. km8 21:26 Patient has correct armband on for positive identification. Bed in low position. Call km light in reach. Side rails up X 1. Client placed on continuous cardiac and pulse oximetry monitoring. NIBP monitoring applied. 21:26 Patient maintains SpO2 saturation greater than 95% on room air. km8 22:07 CT Abd/Pelvis - IV Contrast Only In Process Unspecified. EDMS 23:24 Provided Education on: d/c teaching. km8 23:24 No provider procedures requiring assistance completed. IV discontinued, intact, km8 bleeding controlled, No redness/swelling at site. Pressure dressing applied. Administered Medications: 21:25 Drug: NS 0.9% IV 1000 ml IV at 1 bolus Per protocol; 1000 mL bolus Route: IV; Rate: 1 km8 bolus; Site: right antecubital; 23:24 Follow up: Response: No adverse reaction; IV Status: Completed infusion; IV Intake: km8 1000ml 21:25 Drug: Ondansetron IVP 4 mg IVP once; over 2 minutes Route: IVP; Site: right antecubital;km8 21:50 Follow up: Response: No adverse reaction; Nausea is decreased km8 21:25 Drug: morphine IVP or IV 2 mg IVP once over 4 mins Route: IVP; Infused Over: 4 mins; km8 Site: right antecubital; 21:50 Follow up: Response: No adverse reaction; Pain is decreased km8 23:22 Drug: Ciprofloxacin PO 500 mg PO once Route: PO; km8 23:23 Follow up: Response: No adverse reaction km8 23:22 Drug: metroNIDAZOLE PO 500 mg PO once Route: PO; km8 23:23 Follow up: Response: No adverse reaction km8 Medication: 23:24 VIS not applicable for this client. km8 Intake: 23:24 IV: 1000ml; Total: 1000ml. km8 Outcome: 22:31 Discharge ordered by . rn 23:24 Discharged to home ambulatory, with significant other, km8 23:24 Condition: good 23:24 Discharge instructions given to patient, significant other, Instructed on discharge instructions, follow up and referral plans. medication usage, Demonstrated understanding of instructions, follow-up care, medications, Prescriptions given X 2, 23:25 Patient left the ED. km8 Signatures: Dispatcher [employer] EDMS Clarence Adler MD MD rn Vicente, Ronaldo, RN RN rv Mitchell, G[facility] Luh Knowles RN RN km8
[2022-12-12] MEDS ORDERED: metroNIDAZOLE 500 MG TABLET ONE (23:27)
[2022-12-12] MEDS ORDERED: CIPROFLOXACIN HCL 500 MG TAB ONE (23:27)
[2022-12-12 23:29] VITALS: TEMP 98; O2SAT 100
[2022-12-12 23:36] VITALS: BP 116/72
== END 2022-12-12 23:25 | disposition home or self-care (01) ==
LOC: ER 20:35
DX: R10.12 Left upper quadrant pain (principal)
CPT/HCPCS: 36415; 74177; 80053; 81001; 81025; 83690; 85025; 96361; 96374; 96375; 99285; J2270; J2405; J7030; Q9967

== ENCOUNTER 2023-01-20 21:48 | Emergency (ER) | payer SELFPAY ==
--- OUTSIDE RECORDS SUMMARY | 2023-01-20 21:52 | XMS REPORT | Continuity of Care Document ---
:1995 Author Organization [facility] t Address [address] [place] [address] [address] [place] [address] Care Team Providers Name Role Phone PCP, PATIENT DOES NOT HAVE A Primary Care Physician Unavaila CLOVIS Medina Attending Clinician Unavailable Clovis Duffy MD Attending Clinician CLOVIS DUFFY Admitting Clinician Unavailable Payers Payer Name Policy Type Policy Number Effective Date Expiration Date S [facility] MEDICAID ALIEN PENDING 2022 PENDING 00:00:00 Problems This patient has no known problems. Allergies, Adverse Reactions, Alerts Allergy Allergy Status Severity Reaction(s) Onset Inactive Treating Comm ents Source Name Type Date Date Clinician NO KNOWN Drug Active Univers ALLERGIE Class ity of S [facility] Social History Social Habit Start Date Stop Date Quantity Comments Source [facility] Sexual orientation [facility] Sex Assigned At [birth year] [facility] 00:00:00 00:00:00 [facility] Smoking Status Start Date Stop Date Source Tobacco smoking consumption Univ [facility] Branch Medications Ordered Filled Start Stop Current Ordering Indication Dosage Frequency Signature Comments Components Source Medication Medication Date Date Medication? Clinician (SIG) Name Name iopamidol 2022- No [id number] 100mL 100 mL, Univers (ISOVUE 08-31 Intravenou ity o f 370-500 mL) 08:30: 08:30 s, ONCE, 1 [place] injection 00 :00 dose, On Medica l 100 mL [facility] 08/31/22 at 0330, Routine cefTRIAXone 2022- No 1000mg 1,000 mg, Univers (ROCEPHIN) 08-31 IV ity of 1,000 mg in 08:00: 08:40 Piggyback, [place] NaCl 0.9% 00 :00 ONCE, 1 Medical (NS) 100 mL dose, On Bran ch MINI-BAG [place] 08/31/22 at 0300, Administer over 30 Minutes, 100 mL
Reas on for Anti-Infec tive: Documented Infection< br>Documen osiris Infection Site: Abdominal& lt;br>Dura tion of Therapy: 7 days levoFLOXaci 2022- No 500mg 500 mg, U nivers n 08-31 Oral, ity of (LEVAQUIN) 08:00: 08:05 ONCE, 1 [place] as tablet 500 00 :00 dose, On Medic al mg [facility] 08/31/22 at 0300, DEB
Re ason for Anti-Infec tive: Documented Infection< br>Documen osiris Infection Site: Abdominal< br>Duratio n of Therapy: 7 days ketorolac 2022- No 30mg 30 mg, Unive rs (TORADOL) 08-31 Slow IV ity of injection 06:30: 05:48 Push, [place] 30 mg 00 :00 ONCE, 1 Medical dose, On Branch [place] 08/31/22 at 0130, DEB NaCl 0.9% 2022- No 500mL at 999 Univ ers (NS) bolus 08-31 mL/hr, 500 it y of infusion 06:30: 06:30 mL, IV [place] 500 mL 00 :00 Piggyback, Medical ONCE, 1 Branch dose, On [place] 08/31/22 at 0130, STAT ciprofloxac Yes [id number] 500mg Take 1 Univers in HCl 500 7-16 tablet by ity of mg tablet 00:00: mouth [place] 00 the Medical morning Branch and 1 tablet in the evening. ondansetron Yes [id number] 4mg Take 1 Univers 4 mg 7-16 tablet by ity of disintegrat 00:00: mouth [place] ing tablet 00 every 12 Medic al (twelve) Branch hours as needed for Nausea and Vomiting (N/V). ibuprofen Yes [id number] 600mg Take 1 Univers 600 mg 7-16 tablet by ity of tablet 00:00: mouth [place] 00 every 6 Medical (six) Branch hours as needed for Pain (scale 4-6) or Temp > 38.5 C. metroNIDAZO 2022- No [id number] 500mg Take 1 Univers LE 500 mg -31 08-25 tablet by ity of tablet 00:00: 04:59 mouth in [place] 00 :00 the Medical morning Branch and 1 tablet at noon and 1 tablet in the evening. Do all this for 8 days. Vital Signs Vital Name Observation Time Observation Value Comments Source Heart rate 2022-08-31 08:41:00 112 /min [facility] Body temperature 2022-08-31 08:41:00 37.67 Bessie [facility] Oxygen saturation in 2022-08-31 08:41:00 99 /min [facility] Arterial blood by [facility] Pulse oximetry [place] Systolic blood 2022-08-31 08:00:00 112 mm[Hg] [facility] Diastolic blood 2022-08-31 08:00:00 75 mm[Hg] [facility] Respiratory rate 2022-08-31 08:00:00 15 /min [facility] Body height 2022-08-31 05:19:00 152.4 cm [facility] Body weight 2022-08-31 05:19:00 86.183 kg [facility] BMI 2022-08-31 05:19:00 37.11 kg/m2 [facility] Procedures Procedure Date / Time Performed Performing Clinician Carlos e CT ABDOMEN PELVIS W 2022-08-31 07:36:56 Clovis Duffy [facility] CONTRAST [facility] POCT TEST 2022-08-31 05:51:00 Clovis Duffy [facility] LIPASE 2022-08-31 05:43:00 Clovis Duffy [place] [facility] COMP. METABOLIC PANEL 2022-08-31 05:43:00 Clovis Duffy [facility] ([id number]) [facility] CBC WITH DIFF 2022-08-31 05:43:00 Clovis Duffy [place] [facility] URINALYSIS 2022-08-31 05:43:00 Clovis Duffy [place] [facility] CONSENT/REFUSAL FOR 2022-08-31 05:11:13 [facility]igned, [facility] AND Name [facility] TREATMENT NOTICE OF PRIVACY 2022-08-31 05:10:21 Doctor Unassigned, No Univ [facility] PRACTICES Name Medical Branch Encounters Start End Encounter Admission Attending Care Care Encounter Source Date/Time Date/Time Type Type Clinicians Facility Department ID 2023-01-14 2023-01-14 Outpatient [facility] [place] 10:42:36 10:42:36 [id number] F Raul 2022-12-12 2022-12-12 Outpatient [facility] [place] 08:42:05 08:42:05 [id number] F [place] 2022-08-31 2022-08-31 Emergency X [facility], [facility] ERT [id number] Univers 00:11:00 03:45:00 CLOVIS brooke [facility] 2022-08-31 2022-08-31 Emergency [facility], [facility] [id number] Univers 00:11:00 03:45:00 Clovis CONLEY [id number] i [facility] [id number] [facility] [id number] [place] [id number] Branch Results Test Description Test Time Test Comments Results Result Comments Source COMP. METABOLIC PANEL (58245) 2022-08-31 06:10:48 Test Item Value Reference Range Interpretation Comme nts NA (test code = 2572226469) 140 mmol/L 135-145 K (test code = 4278785072) 3.4 mmol/L 3.5-5.0 L CL (test code = 4106453812) 103 mmol/L 98-108 CO2 TOTAL (test code = 0269764258) 23 mmol/L 23-31 AGAP (test code = 5758797876) 14 2-16 BUN (test code = 8462574789) 9 mg/dL 7-23 GLUCOSE (test code = 2993634621) 108 mg/dL 70-110 CREATININE (test code = 0.46 mg/dL 0.50-1.04 L 1398040363) TOTAL BILI (test code = 0.4 mg/dL 0.1-1.0 2966340471) CALCIUM (test code = 2290390274) 9.3 mg/dL 8.6-10.6 T PROTEIN (test code = 6860688238) 7.7 g/dL 6.3-8.2 ALBUMIN (test code = 3884707493) 4.3 g/dL 3.5-5.0 ALK PHOS (test code = 2089316044) 79 U/L 34-122 ALTv (test code = 1742-6) 26 U/L 5-35 AST(SGOT) (test code = 2012256868) 24 U/L 13-40 eGFR (test code = 6440253503) 165.5 mL/min/1.73m2 KIMANI (test code = KIMANI) [...] tests). Lab Interpretation (test code = Abnormal 64436-4) [facility] Test Item Value Reference Range Interpretation Comments LIPASE (test code = 5837837817) 103 U/L 0-220 Lab Interpretation (test code = Normal 19453-9) [facility] [id number] 05:59:09 Test Item Value Reference Range Interpretation [...] (test code = 36.8 fL 39.0-49.9 L 55065-3) RDW-CV (test code = 12.1 % 12.0-15.5 788-0) PLT (test code = 277 See_Comment [Automated 777-3) message] The sy stem which generated this result transmitted reference range : 166 - 358 10*3/ ?L. The reference r haroldo was not used to interpret this result as normal/abnormal . MPV (test code = 11.3 fL 9.5-12.9 90664-3) NRBC/100 WBC (test 0.0 See_Comment [Automat ed code = 5629295348) message] The system which generated this result transmitted reference range : 0.0 - 10.0 /100 WBCs. The refer ence range was not u sed to interpret th is result as normal/abnormal . NRBC x10^3 (test code See_Comment [Auto mated = 8736201032) message] The s ystem which generated this result transmitted reference range : 10*3/?L. The reference range was not used to interpret this result as normal/abnormal . GRAN MAT (NEUT) % 55.7 % (test code = 770-8) IMM GRAN % (test code 0.40 % = 0951206757) LYMPH % (test code = 36.0 % 736-9) MONO % (test code = 6.2 % 5905-5) EOS % (test code = 1.4 % 713-8) BASO % (test code = 0.3 % 706-2) GRAN MAT x10^3(ANC) 5.51 10*3/uL 1.88-7.09 (test code = 3717297132) IMM GRAN x10^3 (test 0.04 10*3/uL 0.00-0.06 code = 3949057072) LYMPH x10^3 (test code 3.56 10*3/uL 1.32-3.29 H = 731-0) MONO x10^3 (test code 0.61 10*3/uL 0.33-0.92 = 742-7) EOS x10^3 (test code = 0.14 10*3/uL 0.03-0.39 711-2) BASO x10^3 (test code 0.03 10*3/uL 0.01-0.07 = 704-7) Lab Interpretation Abnormal (test code = 15473-8) [facility] [id number] 05:51:00 Test Item Value Reference Range Interpretation Comments POCT PREG (test code = 1605) Negative On board controls acceptable with Yes C Line (test code = 3574) POCT PREG LOT # (test code = 3576) [id number] POCT PREG TEST DATE (test code = 3576) Lab Interpretation (test code = Normal 74718-5) [facility], [id number] 11:23:15SPECIMEN NUMBER: [id number] CULTURE, URINE SPECIMEN NUMBER: [id number] SPECIMEN COMMENT: URINE SOURCE:URINE REPORT STATUS: FINAL FINAL REPORT: 12/13/2021 50-100,000 CFU/ML UROGENITAL VALERIA PRESENT NO COMMON PATHOGENS UNLESS OTHERWISE INDICATED, ALL TESTING PERFORMED [facility] [address] [place] [address] HOME HEALTH CARE CASE MANAGER: KWAME DOWNING M.D. [place] NUMBER [id number] [facility] [place] [place]. [id number]"
[2023-01-20 23:05] LABS: Specific Gravity 1.008 (1.005-1.030); Urine Bilirubin NEGATIVE (Negative); Urine Blood Negative (Negative); Urine Clarity Clear (Clear); Urine Color Colorless (Yellow); Urine Glucose NEGATIVE (Negative); Urine Protein NEGATIVE (Negative); Urine Urobilinogen Normal (Normal); Urine pH 5.5 (5.0-7.0)
[2023-01-20 23:10] LABS: Absolute Lymphocytes (CBC) 2.4 K/uL (0.7-4.9); Hematocrit 37.7 % (36.0-45.0); Lymphocytes % 25.2 % (15.3-44.8); MCV 86.8 fL (80-100); MPV 9.9 fL (7.6-11.3); Platelets 260 thou/uL (152-406); RBC Red Blood Cell Count 4.34 M/uL (3.86-4.86)
[2023-01-20] MEDS ORDERED: NA CHLORIDE 0.9% 1,000 ML ONE (23:17)
[2023-01-20 23:19] LABS: Albumin 3.5 g/dL (3.4-5.0); Bilirubin Total 0.2 mg/dL (0.2-1.0); Potassium 3.5 mEq/L (3.5-5.1); Protein, Total 7.9 g/dL (6.4-8.2)
--- NOTE | 2023-01-21 00:22 | ER ---
Nurse's Notes [facility] Name: Di Lopez Age: 27 yrs Sex: Female : 1995 Arrival Date: 01/20/2023 Time: 21:48 Bed 15 Private MD: Diagnosis: Upper abdominal pain, unspecified Presentation: 01/20 22:22 Chief complaint: Patient states: Left sided flank pain onset 3 hours ago. pt reports cm10 taking ibuprofen with no relief. Pt also reports urinary frequency. Coronavirus screen: Vaccine status: Patient reports receiving the 2nd dose of the covid vaccine. Client denies travel out of the [place] in the last 14 days. Ebola Screen: Patient denies travel to an Ebola-affected area in the 21 days before illness onset. No symptoms or risks identified at this time. Initial Sepsis Screen: Does the patient meet any 2 criteria? No. Patient's initial sepsis screen is negative. Does the patient have a suspected source of infection? No. Patient's initial sepsis screen is negative. Risk Assessment: Do you want to hurt yourself or someone else? Patient reports no desire to harm self or others. Onset of symptoms was January 20, 2023. 22:22 Method Of Arrival: Ambulatory cm10 22:22 Acuity: MATTHEW 3 cm10 Triage Assessment: 23:08 General: Appears in no apparent distress. comfortable, Behavior is calm, cooperative. cm10 Pain: Pain: Complains of pain in left flank Pain radiates to left upper quadrant and left lower quadrant. 23:08 EENT: No deficits noted. No signs and/or symptoms were reported regarding the EENT cm10 system. Neuro: No deficits noted. Potter Agitation-Sedation Scale (RASS): 0 - Alert and Calm Level of Consciousness is awake, alert, obeys commands, Oriented to person, place, time, situation. Cardiovascular: No deficits noted. Patient's skin is warm and dry. Respiratory: No deficits noted. Airway is patent Respiratory effort is even, unlabored, Respiratory pattern is regular, symmetrical. GI: Abdomen is obese, Reports upper abdominal pain. : Reports urinary frequency. Derm: No deficits noted. No signs and/or symptoms reported regarding the dermatologic system. Skin is intact, Skin is pink, warm \T\ dry. Musculoskeletal: No deficits noted. No signs and/or symptoms reported regarding the musculoskeletal system. Range of motion: intact in all extremities. Historical: - Allergies: 22:23 No Known Allergies; cm10 - PMHx: 22:23 Diverticulitis; cm10 - PSHx: 22:23 D\T\C; cm10 - Immunization history:: Adult Immunizations unknown. - Social history:: Smoking status: Patient denies any tobacco usage or history of. Screenin:11 [facility] ED Fall Risk Assessment (Adult) History of falling in the last 3 months, cm10 including since admission No falls in past 3 months (0 pts) Confusion or Disorientation No (0 pts) Intoxicated or Sedated No (0 pts) Impaired Gait No (0 pts) Mobility Assist Device Used No (0 pt) Altered Elimination No (0 pt) Score/Fall Risk Level 0 - 2 = Low Risk Oriented to surroundings, Maintained a safe environment, Hourly rounding (assess needs \T\ fall precautionary measures) done. Abuse screen: Denies threats or abuse. Denies injuries from another. Nutritional screening: No deficits noted. Tuberculosis screening: No symptoms or risk factors identified. Assessment: 01/21 01:25 General: Appears in no apparent distress. Behavior is calm, cooperative, appropriate la4 for age. Cardiovascular: Heart tones S1 S2 Capillary refill < 3 seconds is brisk fingers Patient's skin is warm and dry. Pulses are all present. Rhythm is sinus rhythm Chest pain is denied. Respiratory: No deficits noted. Airway is patent Respiratory effort is even, unlabored, Respiratory pattern is regular, symmetrical, Breath sounds are clear bilaterally. GI: Bowel sounds present X 4 quads. Abd is soft and non tender X 4 quads. Vital Signs: 01/20 22:22 BP 129 / 78; Pulse 88; Resp 16; Temp 97.5; Pulse Ox 100% ; Weight 94.8 kg (R); Height 5 cm10 ft. 0 in. ; Pain 6/10; 01/21 01:25 BP 124 / 63; Pulse 80; Resp 20; Pulse Ox 100% on R/A; la4 01/20 22:22 Body Mass Index 40.82 (94.80 kg, 152.4 cm) cm10 01/20 22:22 Pain Scale: Adult cm10 Guillermo Coma Score: 01:25 Eye Response: spontaneous(4). Motor Response: obeys commands(6). Verbal Response: la4 oriented(5). Total: 15. ED Course: 01/20 22:19 Patient arrived in ED. ag3 22:19 Jeremie Sosa MD is Attending Physician. sp4 22:19 Vanda Coates FNP-C [facility] kb 22:23 Triage completed. cm10 22:24 Arm band placed on Patient placed in an exam room, on a stretcher. cm10 22:54 CBC with Diff Sent. cm10 22:54 CMP Sent. cm10 22:54 Lipase Sent. cm10 22:54 Test, Urine Sent. cm10 22:54 Urinalysis w/ reflexes Sent. cm10 22:54 Initial lab(s) drawn, by me, sent to lab. Urine collected: clean catch specimen. cm10 Inserted saline lock: 20 gauge in right antecubital area, using aseptic technique. Blood collected. 23:11 Patient has correct armband on for positive identification. Provided Education on: ER cm10 process and procedures. . 23:11 No provider procedures requiring assistance completed. cm10 23:40 Omer Beltrán, RN is Primary Nurse. la4 23:40 CT Abd/Pelvis - IV Contrast Only Sent. la4 23:48 CT Abd/Pelvis - IV Contrast Only In Process Unspecified. EDMS 01/21 01:25 IV discontinued, intact, bleeding controlled, No redness/swelling at site. Pressure la4 dressing applied. Administered Medications: 01/20 23:08 Drug: NS 0.9% IV 1000 ml IV at 1 bolus Per protocol; 1000 mL bolus Route: IV; Rate: 1 cm10 bolus; Site: right antecubital; 23:40 Follow up: Response: No adverse reaction la4 01/21 01:24 Follow up: Response: No adverse reaction; Pain is decreased; IV Status: Completed la4 infusion; IV Intake: 1000ml 01:23 Drug: Famotidine IVP 20 mg IVP once; dilute with 10 mL 0.9% NaCl; give over 2 minutes la4 Route: IVP; Site: right antecubital; 01:24 Follow up: Response: No adverse reaction la4 01:24 Drug: Ketorolac IVP 15 mg IVP once Route: IVP; Site: right antecubital; la4 01:24 Follow up: Response: No adverse reaction la4 Medication: 01/20 23:11 VIS not applicable for this client. cm10 Intake: 01/21 01:24 IV: 1000ml; Total: 1000ml. la4 Outcome: 00:22 Discharge ordered by . kb 01:25 Discharged to home ambulatory, la4 01:25 Condition: stable 01:25 Discharge instructions given to patient, Instructed on discharge instructions, follow up and referral plans. Demonstrated understanding of instructions, follow-up care, 01:27 Patient left the ED. la4 Signatures: Dispatcher [employer] EDMS Vanda Coates, SENIOR PATROL AGENT-C SENIOR PATROL AGENT-CkLisa Haynes Sergey, MD MD sp4 Belkis Youngblood RN RN cm10 Omer Beltrán RN RN la4 Corrections: (The following items were deleted from the chart) 01/20 23:11 23:08 Pain: cm10 cm10
--- NOTE | 2023-01-21 00:22 | EDPHYS ---
Physician Documentation [facility] Name: Di Lopez Age: 27 yrs Sex: Female : 1995 Arrival Date: 01/20/2023 Time: 21:48 Bed 15 Private MD: ED Physician Jeremie Sosa HPI: 01/20 23:41 This 27 yrs old Female presents to ER via Ambulatory with complaints of kb Abdominal Pain. 23:41 Patient is a 27-year-old female with a history of diverticulitis who presents for left kb flank pain that radiates to left upper quadrant that started approximately 3 hours prior to arrival. Also reports urinary frequency. Denies nausea, vomiting, diarrhea, fever. Historical: - Allergies: 22:23 No Known Allergies; cm10 - PMHx: 22:23 Diverticulitis; cm10 - PSHx: 22:23 D\T\C; cm10 - Immunization history:: Adult Immunizations unknown. - Social history:: Smoking status: Patient denies any tobacco usage or history of. ROS: 23:40 Constitutional: Negative for fever, chills, and weight loss, kb 23:40 Abdomen/GI: Positive for abdominal pain, Negative for nausea, vomiting, and diarrhea, 23:40 All other systems are negative, 23:41 : Positive for urinary frequency, kb Exam: 23:41 Constitutional: This is a well developed, well nourished patient who is awake, alert, kb and in no acute distress. Head/Face: Normocephalic, atraumatic. ENT: Moist Mucous membranes Cardiovascular: Regular rate Respiratory: Respirations even and unlabored. No increased work of breathing. Talking in full sentences Skin: Warm, dry with normal turgor. Normal color. MS/ Extremity: Pulses equal, no cyanosis. Neurovascular intact. Full, normal range of motion. Neuro: Awake and alert, GCS 15, oriented to person, place, time, and situation. Moves all extremities. Normal gait. 23:41 Abdomen/GI: Inspection: abdomen appears normal, Bowel sounds: normal, Palpation: soft, in all quadrants, mild abdominal tenderness, in the right upper quadrant, right lower quadrant and left lower quadrant, moderate abdominal tenderness, in the left upper quadrant, Vital Signs: 22:22 BP 129 / 78; Pulse 88; Resp 16; Temp 97.5; Pulse Ox 100% ; Weight 94.8 kg (R); Height 5 cm10 ft. 0 in. ; Pain 6/10; 01/21 01:25 BP 124 / 63; Pulse 80; Resp 20; Pulse Ox 100% on R/A; la4 01/20 22:22 Body Mass Index 40.82 (94.80 kg, 152.4 cm) cm10 01/20 22:22 Pain Scale: Adult cm10 [place] Coma Score: 01:25 Eye Response: spontaneous(4). Motor Response: obeys commands(6). Verbal Response: la4 oriented(5). Total: 15. MDM: 01/20 22:19 Patient medically screened. kb 23:41 Differential diagnosis: diverticulitis, non-specific abd pain, Pyelonephritis, kb Ureterolithiasis, urinary tract infection. Data reviewed: vital signs, nurses notes. 01/21 00:21 Counseling: I had a detailed discussion with the patient and/or guardian regarding the kb historical points, exam findings, and any diagnostic results supporting the discharge/admit diagnosis, lab results, radiology results, the need for outpatient follow up, a family practitioner, to return to the emergency department if symptoms worsen or persist or if there are any questions or concerns that arise at home. 12 22:25 Order name: CBC with Diff; Complete Time: 23:17 kb 01/20 22:25 Order name: CMP; Complete Time: 23:19 kb 01/20 22:25 Order name: Lipase; Complete Time: 23:19 kb 01/20 22:25 Order name: Test, Urine; Complete Time: 23:17 kb 01/20 22:25 Order name: Urinalysis w/ reflexes; Complete Time: 23:07 kb 01/20 22:25 Order name: CT Abd/Pelvis - IV Contrast Only kb 01/20 22:25 Order name: IV Saline Lock; Complete Time: 22:54 kb 01/20 22:25 Order name: Labs collected and sent; Complete Time: 22:54 kb Administered Medications: 01/20 23:08 Drug: NS 0.9% IV 1000 ml IV at 1 bolus Per protocol; 1000 mL bolus Route: IV; Rate: 1 cm10 bolus; Site: right antecubital; 23:40 Follow up: Response: No adverse reaction la4 01/21 01:24 Follow up: Response: No adverse reaction; Pain is decreased; IV Status: Completed la4 infusion; IV Intake: 1000ml 01:23 Drug: Famotidine IVP 20 mg IVP once; dilute with 10 mL 0.9% NaCl; give over 2 minutes la4 Route: IVP; Site: right antecubital; 01:24 Follow up: Response: No adverse reaction la4 01:24 Drug: Ketorolac IVP 15 mg IVP once Route: IVP; Site: right antecubital; la4 01:24 Follow up: Response: No adverse reaction la4 Disposition: 01:09 Co-signature as Attending Physician, Jeremie Sosa MD I agree with the assessment sp4 and plan of care. I reviewed the patient's care provided by the Advanced Practice Provider and agree with the diagnosis and treatment plan. Disposition Summary: 01/21/23 00:22 Discharge Ordered Notes: Location: Home kb Condition: Stable kb Diagnosis - Upper abdominal pain, unspecified kb Followup: kb - With: Emergency Department - When: As needed - Reason: Worsening of condition Followup: kb - With: Private Physician - When: 2 - 3 days - Reason: Recheck today's complaints, Continuance of care, Re-evaluation by your physician Discharge Instructions: - Discharge Summary Sheet kb - Abdominal Pain, Adult, [id number] kb Forms: - Medication Reconciliation Form kb - Thank You Letter kb - Antibiotic Education kb - Prescription Opioid Use kb - Patient Portal Instructions kb - Leadership Thank You Letter kb Signatures: Dispatcher [employer] Vanda Whalen FNP-C FNP-Jeremie Lucero MD MD sp4 Belkis Yonugblood, RN RN cm10 Omer Beltrán, RN RN la4
[2023-01-21] MEDS ORDERED: KETOROLAC 30 MG/ML INJ ONE (01:25)
[2023-01-21] MEDS ORDERED: FAMOTIDINE 20 MG/2 ML VIAL IV ONE (01:25)
[2023-01-21 01:57] VITALS: TEMP 97.5; O2SAT 100
[2023-01-21 01:59] VITALS: BP 124/63
--- NOTE | 2023-01-21 17:14 | RAD REPORT ---
EXAM DESCRIPTION: CT - Abdomen Pelvis W Contrast - 01/21/2023 6:39 am CLINICAL HISTORY: 27 years, Female, ABD PAIN COMPARISON: 12/12/2022 TECHNIQUE: Contrast-enhanced images of the abdomen and pelvis were performed utilizing 5 mm slice th ickness at 5 mm interval reconstruction from the lung bases to the ischial tuberosities after the adm inistration of IV contrast. In addition multiplanar reformats in the coronal and sagittal plane were obtained and reviewed. An individualized dose optimization technique, Automated Exposure Control, was utilized for the perfo rmed procedure. FINDINGS: Lung bases: The lung bases demonstrate to be clear. Liver: The liver demonstrates to be normal, no focal lesions identified. Gallbladder: The gallbladder demonstrate to be normal. Adrenal glands: The adrenal glands demonstrate to be normal. Pancreas: The pancreas demonstrate to be normal. Spleen: The spleen demonstrate to be within normal limits. Kidneys: The kidneys demonstrate normal uptake of contrast media. There is no evidence for signific ant nephrolithiasis and/or hydronephrosis. There are no significant cystic lesions. GI: Grossly the unopacified stomach, small bowel and large bowel demonstrate to be within normal limi ts. No evidence for bowel dilatation and/or free air. The appendix is normal. The left-sided colon/si gmoid colon demonstrates presence of minimal diverticulosis. : The urinary bladder demonstrate to be unremarkable. Genitalia: The uterus demonstrate to be within normal limits. There are normal adnexal structures. Abdominal aorta: The aorta demonstrate to be within normal limits. Retroperitoneum: There is no retroperitoneal lymphadenopathy. There is no evidence for ascites and/or abnormal fluid collections. Bones: The bony structures demonstrate to be within normal limits. Soft tissues: The rest of the soft tissue and bony structures are within normal limits. IMPRESSION: No evidence for nephrolithiasis and/or hydronephrosis. Minimal diverticulosis without evidence of acute diverticulitis. Otherwise unremarkable CT scan of the abdomen and pelvis with contrast. Electronically signed by: Franck Benito MD 01/21/2023 12:12 AM RUBBISH COLLECTOR Due to temporary technical issues with the PACS/Fluency reporting system, reports are being signed by the in house radiologists without review as a courtesy to insure prompt reporting. The interpreting radiologist is fully responsible for the content of the report.
== END 2023-01-21 01:27 | disposition home or self-care (01) ==
LOC: ER 21:48
DX: R10.12 Left upper quadrant pain (principal)
CPT/HCPCS: 36415; 74177; 80053; 81003; 81025; 83690; 85025; 96361; 96374; 96375; 99284; J7030; Q9967